=== PATIENT | male | born 1930 | race Caucasian/White ===

== ENCOUNTER 2016-07-06 15:48 | Emergency (ER) | payer OTHER, MEDICARE ==
[~2016-07-06] VITALS: Ht 172.7 cm; Wt 97.5 kg
[2016-07-06] MEDS ORDERED: ACETAMINOPHEN-1 EAC2 PO (16:31)
[2016-07-06] MEDS ORDERED: GABAPENTIN300 M2 PO (16:31)
[2016-07-06] MEDS ORDERED: LEVOTHYROXINE88 MCG PO (16:32)
[2016-07-06 17:26] LABS: ABSOLUTE BASOPHIL COUNT 0 /CUMM (0.0-0.2); ABSOLUTE EOSINOPHIL COUNT 0 /CUMM (0.0-0.7); ABSOLUTE GRANULOCYTE CT 9.9 /CUMM (1.4-6.5); ABSOLUTE LYMPH COUNT 1.6 /CUMM (1.2-3.4); ABSOLUTE MONOCYTE COUNT 1.1 /CUMM (0.10-0.60); BASOPHIL % 0.3 % (0.0-2.0); EOSINOPHIL % 0.4 % (0-5); GRANULOCYTE % 77.8 % (42.2-75.2); HEMATOCRIT 39.3 % (42-52); MEAN CORPUSCULAR HGB 29.6 PG (27.0-31.0); MEAN CORPUSCULAR HGB CONC 34.1 G/DL (33.0-37.0); MEAN CORPUSCULAR VOLUME 86.8 FL (80.0-94.0); MEAN PLATELET VOLUME 8.1 FL (7.4-10.4); PLATELET COUNT 173 /CUMM (130-400); RBC DISTRIBUTION WIDTH 13.6 % (11.5-14.5); RED BLOOD CELL CT 4.53 /CUMM (4.70-6.10); WHITE BLOOD CELL COUNT 12.7 /CUMM (4.8-10.8)
--- NOTE | 2016-07-06 17:44 | ED MVC/FALL/TRAUMA COMPLAINT ---
History of Present Illness General Chief Complaint: Shoulder Injury Stated Complaint: FALL X1 HOUR PRIOR LEFT SHOULDER PAIN Source: patient, family Exam Limitations: no limitations Vital Signs & Intake/Output Vital Signs & Intake/Output Vital Signs Date Time Temp Pulse Resp B/P Pulse O2 O2 Flow FiO2 Ox Delivery Rate 07/06 1848 98.2 95 20 150/72 96 Room Air 07/06 1632 Room Air Room Air 07/06 1554 98.8 103 22 103/55 91 Room Air Allergies Coded Allergies: MDX - Sulfamethoxazole (From ) (Intermediate, "MADE ME CLIMB THE WALL" ) MDX - Trimethoprim (From ) (Intermediate, "MADE ME CLIMB THE WALL" ) tetracycline (Intermediate, "SORE ON MY SCROTUM" 07/06/16) tramadol (Intermediate, "FELT AWFUL" 07/06/16) Uncoded Allergies: IVP CONTRAST DYE (Intermediate, HIVES 02/08/12) Reconcile Medications Acetaminophen With Codeine (Acetaminophen-Cod #4 Tablet) 300 MG-60 MG TABLET 1 TAB PO TIDPRN PAIN (Reported) Gabapentin 300 MG CAPSULE 1 CAP PO QPM PAIN (Reported) Levothyroxine Sodium 88 MCG TABLET 1 TAB PO DAILY THYROID (Reported) Triage Note: TRIAGE: PT BIBA FROM HOME S/P FALL. PER REPORT OF EMS PT HEARD A THUD APPROX AN HOUR PRIOR TO CALLING 911. STATES SHE HEARD THE THUD BUT DIDN'T THINK MUCH OF IT SHE THEN HEARD MOVEMENT RIGHT AWAY AFTERWARDS BUT THEN SHE CHECKED ON HIM BECAUSE HE HADN'T EATEN YET AND FOUND HIM ON THE FLOOR IN THE BEDROOM. PT A/O X 3 ON ARRIVAL TO ER BUT HAS POOR RECOLLECTION OF THE EVENTS LEADING INTO THE FALL. PT IS UNSURE IF HE TRIPPED AND FELL OR HAD GOTTEN DIZZY. HAS MINOR ABRASION TO L SIDE OF FOREHEAD. STATES HE DOESN'T THINK HE HIT HIS HEAD DURING THE FALL BUT KNOWS HE BUMPED HIS HEAD ON THE BOTTOM OF THE NIGHT TABLE WHEN HE WAS TRYING TO GET UP. COMPLAINS ONLY OF PAIN TO L SHOULDER AREA AND NECK. NECK IS NON TENDER ON PALPATION. Triage Nurses Notes Reviewed? yes Onset: Abrupt Duration: hour(s):, constant, continues in ED Timing: recent history Severity: moderate, severe Injuries/Fall Location: head, neck, upper extremity Loss of Consciousness: no loss of consciousness No Modifying Factors: none HPI: 78-year-old male comes into emergency room for further evaluation of falling at home. Patient cannot recall the fall itself. Patient is reporting some left shoulder pain and neck pain. Patient is medicated with Tylenol with codeine and gabapentin at night. Patient denies any chest pain shortness of breath palpitations lightheaded dizziness. Denies any headache. Patient cannot recall if he hit his head. Denies any anticoagulants. Denies Any Chest Pain Rib Pain or Abdominal Pain. Patient Is Alert and Oriented. According to the He Is Acting Appropriately and How He Normally Does. (REFUGIO JAMES) Past History Travel History Traveled to [place] past 21 day No Medical History Any Pertinent Medical History? see below for history Neurological: NONE EENT: cataracts Cardiovascular: "WALL STENT L LEG" Respiratory: NONE Gastrointestinal: NONE Hepatic: NONE Renal: BLADDER DYSPLASIA Musculoskeletal: sciatica Psychiatric: NONE Endocrine: hypothyroidism, BORDERLINE DM Blood Disorders: NONE Cancer(s): NONE LEADER TIER/Reproductive: NONE Surgical History Surgical History: non-contributory Psychosocial History What is your primary language Latvian Tobacco Use: Quit >30 days ago ETOH Use: denies use Illicit Drug Use: denies illicit drug use Family History Hx Contributory? No (REFUGIO JAMES) Review of Systems Review of Systems Constitutional: Reports: no symptoms. Eyes: Reports: no symptoms. Ears, Nose, Throat, Mouth: Reports: no symptoms. Respiratory: Reports: no symptoms. Cardiovascular: Reports: no symptoms. Gastrointestinal/Abdominal: Reports: no symptoms. Genitourinary: Reports: no symptoms. Musculoskeletal: Reports: see HPI. Skin: Reports: no symptoms. Neurological/Psychological: Reports: no symptoms. All Other Systems: Reviewed and Negative (REFUGIO JAMES) Physical Exam Physical Exam General Appearance: well developed/nourished, alert, awake Head: atraumatic, normal appearance Eyes: Bilateral: normal appearance, PERRL, EOMI. Ears, Nose, Throat, Mouth: hearing grossly normal, moist mucous membrane Neck: normal inspection, full range of motion Respiratory: normal breath sounds, no respiratory distress Cardiovascular: regular rate/rhythm Gastrointestinal: soft Genital/Rectal: normal genital exam Back: normal inspection, normal range of motion Extremities: normal range of motion Neurologic/Psych: awake, alert, oriented x 3, normal gait, normal mood/affect Skin: intact, normal color Core Measures ACS in differential dx? No Severe Sepsis Present: No Septic Shock Present: No (REFUGIO JAMES) Progress Differential Diagnosis: aoritic dissection, abd injury, C/T/L spine injury, ext injury, ICH, pelvis injury, pnemothorax, spinal cord injury Plan of Care: Orders Procedure Date/time Status URINALYSIS 07/06 1628 Complete TROPONIN LEVEL 07/06 1628 Complete COMPREHENSIVE METABOLIC PANEL 07/06 1628 Complete CBC WITHOUT DIFFERENTIAL 07/06 1628 Complete EKG 07/06 1628 Active Laboratory Tests 07/06/16 1706: Anion Gap 12, Estimated GFR > 60, BUN/Creatinine Ratio 26.0 H, Glucose 111 H, Calcium 8.9, Total Bilirubin 1.3, AST 32, ALT 37, Alkaline Phosphatase 137 H, Troponin I < 0.01, Total Protein 6.6, Albumin 3.9, Globulin 2.7, Albumin/ Globulin Ratio 1.4, CBC w Diff NO MAN DIFF REQ, RBC 4.53 L, MCV 86.8, MCH 29.6, RDW 13.6, MPV 8.1, Gran % 77.8 H, Lymphocytes % 12.6 L, Monocytes % 8.9, Eosinophils % 0.4, Basophils % 0.3, Absolute Granulocytes 9.9 H, Absolute Lymphocytes 1.6, Absolute Monocytes 1.1 H, Absolute Eosinophils 0, Absolute Basophils 0, PUBS MCHC 34.1, Urine Color YEL, Urine Clarity CLEAR, Urine pH 6.0, Ur Specific [place] >= 1.030, Urine Protein NEG, Urine Ketones 15 H, Urine Nitrite NEG, Urine Bilirubin NEG, Urine Urobilinogen 1.0, Ur Leukocyte Esterase NEG, Ur Microscopic EXAM NOT REQUIRED, Urine Hemoglobin NEG, Urine Glucose NEG Diagnostic Imaging: Viewed by Me: Radiology Read, CT Scan. Discussed w/RAD: Radiology Read, CT Scan. Radiology Impression: SERVICE DATE: 07/06/16 EXAM TYPE: CAT - CT CERV SPINE WO IV CONTRAST; CT HEAD WO IV CONTRAST EXAMINATION: CT HEAD WITHOUT CONTRAST CT CERVICAL SPINE WITHOUT CONTRAST CLINICAL INFORMATION: Fall. Pain. COMPARISON: None. TECHNIQUE: Contiguous axial imaging was performed from the skull base to vertex without intravenous administration of contrast. In addition , helical noncontrast CT imaging was acquired through the cervical spine and source images were reviewed along with axial reconstructions and sagittal and coronal MPRs. DLP: 886 mGy-cm FINDINGS: HEAD: There is no hemorrhage, edema, mass effect, hydrocephalus, shift of the normally midline structures, extra- axial collection, or territorial infarct. There is moderate generalized prominence of the ventricles, sulci, and extra-axial CSF spaces and mild periventricular hypoattenuation compatible with chronic microangiopathy. No calvarial fractures. The imaged paranasal sinuses, nasal cavity, nasopharynx, mastoid air cells and middle ear cavities are clear. The temporomandibular joints articulate normally. The visualized soft tissues are unremarkable. There have been bilateral ocular lens extractions. CERVICAL SPINE: No evidence of cervical spinal fracture or traumatic subluxation. No prevertebral soft tissue swelling. The atlantoaxial and atlantoaxial occipital articulations are maintained. There is grade 1 degenerative anterolisthesis of C4 on C5 measuring approximately 1 to 2 mm. There is multilevel advanced right-sided facet arthropathy. There is multilevel intervertebral disc height loss, endplate sclerosis and spurring at several levels, most notable at C3-C4 and C6-C7 were there is near complete intervertebral disc height loss. This results in multilevel mild canal stenosis, without evidence of high-grade osseous canal stenosis at any level. Varying degrees of foraminal stenosis including moderate foraminal stenosis bilaterally at C5-C6 and on the right at C4-C5. The visualized pharyngeal and laryngeal contours appear unremarkable. No cervical adenopathy is evident. No pneumothoraces at the lung apices. IMPRESSION: 1. No acute intracranial pathology. Moderate generalized volume loss and mild chronic microangiopathy. 2. No CT evidence of acute cervical spine fracture or traumatic subluxation. 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 DICTATED BY: ALICE SALVADOR MD DATE/TIME DICTATED:07/06/161821 SALESPERSON CHILDR[employer]: ADOLFO DATE/TIME TRANSCRIBED:07/06/161821, SERVICE DATE: 07/06/16 EXAM TYPE: RAD - XRY-SHOULDER COMPLETE-LEFT EXAMINATION: XR SHOULDER, LEFT CLINICAL INFORMATION: Fall, left shoulder pain. COMPARISON: No relevant prior studies are available for comparison. TECHNIQUE: AP external rotation, Grashey and scapular Y views of the left shoulder were obtained. FINDINGS: No fracture or dislocation. Mild glenohumeral joint space narrowing. Tiny inferior glenoid marginal osteophyte. No osseous erosion. No abnormal soft tissue calcification. IMPRESSION: 1. No fracture or dislocation. 2. Minimal left shoulder arthrosis. DICTATED BY: ZAHIDA DUNAWAY MD Initial ED EKG: normal intervals, normal p-waves, normal sinus rhythm, rate (110 ), nonspecific ST T wave chg (REFUGIO JAMES) Departure Departure Disposition: HOME OR SELF CARE Condition: Stable Clinical Impression Primary Impression: Shoulder sprain Secondary Impressions: Cervical strain Referrals: APRIL TRUJILLO MD (PCP/Family) Additional Instructions: Decrease your Tylenol with codeine to half a pill twice a day. Discussed this with your primary care doctor on Friday. Keep the gabapentin at the same dose at this time. Follow-up with your doctor this week. Please go over all results of today's visit with your primary care doctor. Contact your primary care doctor to let them know you were here in the emergency room. There may be nonspecific findings which may not be related to your visit today here in the emergency room but may require further evaluation and chronic monitoring by your primary care doctor. If you had a laceration today the chance of foreign body always remains. You should follow-up with your primary care doctor for recheck in 3-5 days for a wound check. If you had an x-ray done there is a chance that a fracture could have been missed on initial read and you should follow-up with your primary care doctor for repeat x-rays if symptoms persist. If your blood pressure was elevated here in the emergency room please have rechecked by her primary care doctor within the next 48 hours by your primary care doctor. If you were prescribed a narcotic here in the emergency room or any type of controlled substances you're not allowed to drive while taking this medication or operate any type of heavy machinery. Narcotics can make you feel lightheaded dizziness nausea and can cause constipation. You may need to slate picker a stool softener. Thank you for choosing [facility] emergency room. Please return to the emergency room immediately if you have any other concerns worsening of symptoms. Departure Forms: Customer Survey General Discharge Information Comments 07/06/2016 7:07:40 PM Patient able to ambulate here in the emergency room. Clinically looks well. Symptoms are likely related to mechanical fall even though patient cannot recall the events of the fall. Patient denies any chest pain shortness of breath syncopal episodes here. Follow-up with primary care doctor. Patient was decreased on Tylenol with codeine. I feel that the medication is likely related to the patient's fall. Return if any other concerns worsening symptoms. Patient was seen and evaluated by Dr. Sheriff. (JUDY COLON,REFUGIO) PA/WEB DEVELOPMENT INSTRUCTOR Co-Sign Statement Statement: ED Attending supervision documentation- [x] I saw and evaluated the patient. I have also reviewed all the pertinent lab results and diagnostic results. I agree with the findings and the plan of care as documented in the PA's/WEB DEVELOPMENT INSTRUCTOR's documentation. [] I have reviewed the ED Record and agree with the PA's/WEB DEVELOPMENT INSTRUCTOR's documentation. [] Additions or exceptions (if any) to the PAs/WEB DEVELOPMENT INSTRUCTOR's note and plan are summarized below: [] (BRIGITTE SHERIFF DO
--- NOTE | 2016-07-06 18:33 | CT SCAN REPORT ---
EXAMINATION: CT HEAD WITHOUT CONTRAST CT CERVICAL SPINE WITHOUT CONTRAST CLINICAL INFORMATION: Fall. Pain. COMPARISON: None. TECHNIQUE: Contiguous axial imaging was performed from the skull base to vertex without intravenous administration of contrast. In addition, helical noncontrast CT imaging was acquired through the cervical spine and source images were reviewed along with axial reconstructions and sagittal and coronal MPRs. DLP: 886 mGy-cm FINDINGS: HEAD: There is no hemorrhage, edema, mass effect, hydrocephalus, shift of the normally midline structures, extra-axial collection, or territorial infarct. There is moderate generalized prominence of the ventricles, sulci, and extra-axial CSF spaces and mild periventricular hypoattenuation compatible with chronic microangiopathy. No calvarial fractures. The imaged paranasal sinuses, nasal cavity, nasopharynx, mastoid air cells and middle ear cavities are clear. The temporomandibular joints articulate normally. The visualized soft tissues are unremarkable. There have been bilateral ocular lens extractions. CERVICAL SPINE: No evidence of cervical spinal fracture or traumatic subluxation. No prevertebral soft tissue swelling. The atlantoaxial and atlantoaxial occipital articulations are maintained. There is grade 1 degenerative anterolisthesis of C4 on C5 measuring approximately 1 to 2 mm. There is multilevel advanced right-sided facet arthropathy. There is multilevel intervertebral disc height loss, endplate sclerosis and spurring at several levels, most notable at C3-C4 and C6-C7 were there is near complete intervertebral disc height loss. This results in multilevel mild canal stenosis, without evidence of high-grade osseous canal stenosis at any level. Varying degrees of foraminal stenosis including moderate foraminal stenosis bilaterally at C5-C6 and on the right at C4-C5. The visualized pharyngeal and laryngeal contours appear unremarkable. No cervical adenopathy is evident. No pneumothoraces at the lung apices. IMPRESSION: 1. No acute intracranial pathology. Moderate generalized volume loss and mild chronic microangiopathy. 2. No CT evidence of acute cervical spine fracture or traumatic subluxation. 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
[2016-07-06 18:48] VITALS: BP 150/72
== END 2016-07-06 19:12 ==
LOC: ERH 15:48
PROVIDERS: Physician Assistant Medical
DX: S43.402A Unspecified sprain of left shoulder joint, initial encounter (principal); S13.4XXA Sprain of ligaments of cervical spine, initial encounter; W19.XXXA Unspecified fall, initial encounter
CPT/HCPCS: 73030-LT; 81003; 93005; 93010